=== PATIENT | male | born 1970 | race Caucasian/White ===

== ENCOUNTER 2024-02-13 13:40 | Emergency (ER) | payer OTHER ==
[~2024-02-13] VITALS: Ht 182.8 cm
[2024-02-13] MEDS ORDERED: TRAMADOL HCL50 MG PO (14:13)
[2024-02-13] MEDS ORDERED: EFFEXOR XR75 M1 PO (14:13)
[2024-02-13] MEDS ORDERED: FOLIC ACID0.8 M1 PO (14:14)
[2024-02-13] MEDS ORDERED: GLIPIZIDE5 M1 PO (14:14)
[2024-02-13] MEDS ORDERED: TRULICITY0.75 MG/0. SC (14:15)
[2024-02-13] MEDS ORDERED: Bacitracin Zinc 14 GM TUBE T ONE (15:30)
== END 2024-02-13 15:32 | disposition home or self-care (01) ==
LOC: ED 13:40
DX: S62.502A Fracture of unspecified phalanx of left thumb, initial encounter for closed fracture (principal); E11.9 Type 2 diabetes mellitus without complications; I10 Essential (primary) hypertension; E78.5 Hyperlipidemia, unspecified; J44.9 Chronic obstructive pulmonary disease, unspecified; F41.9 Anxiety disorder, unspecified; F32.A Depression, unspecified; Z88.6 Allergy status to analgesic agent; Z88.8 Allergy status to other drugs, medicaments and biological substances; Z98.890 Other specified postprocedural states; F17.200 Nicotine dependence, unspecified, uncomplicated; Y04.0XXA Assault by unarmed brawl or fight, initial encounter; Y93.89 Activity, other specified; Y92.89 Other specified places as the place of occurrence of the external cause; Y99.8 Other external cause status

== ENCOUNTER 2024-04-01 14:26 | Emergency (ER) | payer OTHER ==
[~2024-04-01] VITALS: Ht 182.8 cm; Wt 96.6 kg
[~2024-04-01 14:26] MED LIST: EFFEXOR XR75 M1 PO; FOLIC ACID0.8 M1 PO; GLIPIZIDE5 M1 PO; TRAMADOL HCL50 MG PO; TRULICITY0.75 MG/0. SC
[2024-04-01] MEDS ORDERED: KLONOPIN1 M1 PO (14:54)
[2024-04-01] MEDS ORDERED: OXYCODONE HCL5 MG PO (15:18)
[2024-04-01] MEDS ORDERED: BENZTROPINE ME0.5 MG PO (15:18)
[2024-04-01] MEDS ORDERED: VENT7GM INH (15:19)
[2024-04-01] MEDS ORDERED: NATURE'S BLEND F1 MG PO (15:19)
[2024-04-01] MEDS ORDERED: LAMOTRIGINE25 M1 PO (15:19)
[2024-04-01] MEDS ORDERED: LISINOPRIL2.5 MG PO (15:19)
[2024-04-01] MEDS ORDERED: OMEPRAZOLE40 MG PO (15:19)
[2024-04-01] MEDS ORDERED: CYCLOBENZAPRINE10 MG PO (15:20)
[2024-04-01] MEDS ORDERED: MELOXICAM15 MG PO (15:20)
[2024-04-01] MEDS ORDERED: clonAZEPAM 0.5 MG TAB PO ONE (16:45)
[2024-04-01 16:59] LABS: BILIRUBIN Negative (Negative); BLOOD Negative (Negative); CLARITY Clear (Clear); COLOR Yellow (Yellow); GLUCOSE 1+ (Negative); KETONE Negative (Negative); LEUKO ESTERASE Trace (Negative); NITRITE Negative (Negative); SPECIFIC GRAVITY <= 1.005 (1.001-1.030); UROBILINOGEN 0.2 E.U./dl (0.0-1.0)
[2024-04-01 16:59] LABS: HEMATOCRIT 43.4 % (42.0-52.0); MEAN CELL VOLUME 87.9 fl (80.0-94.0); MEAN CORPUSCULAR HGB 27.9 pg (27.0-31.0); MEAN CORPUSCULAR HGB CONC 31.8 g/dl (33.0-37.0); MEAN PLATELET VOLUME 12.6 fl (9.6-12.3); PLATELET COUNT AUTOMATED 124 10*3/uL (130-400); RED BLOOD COUNT 4.94 10*6/uL (4.50-5.90); WHITE BLOOD COUNT 7.8 10*3/uL (4.8-10.8)
[2024-04-01 17:00] LABS: MANUAL DIFF REFLEX YES
[2024-04-01 17:20] LABS: ALKALINE PHOSPHATASE 97 U/L (46-116); BUN 8 mg/dl (9-23); CHLORIDE 111 mmol/L (98-107); POTASSIUM 3.4 mmol/L (3.4-5.1); SGPT/ALT 65 U/L (5-49)
[2024-04-01 17:22] LABS: BACTERIA TRACE; WBC 0-2 wbc/hpf (0-5)
[2024-04-01 17:29] LABS: PLATELET SUFFICIENCY NORMAL (NORMAL); TOTAL CELLS COUNTED 100 #CELLS
[2024-04-01 17:30] LABS: BURR CELLS FEW
[2024-04-01] MEDS ORDERED: CEPHALEXIN 500 MG CAP PO ONE (18:15)
[2024-04-01] MEDS ORDERED: CEPHALEXIN500 M1 PO (18:44)
== END 2024-04-01 18:52 | disposition home or self-care (01) ==
LOC: ED 14:26
PROVIDERS: Emergency Medicine
DX: R07.89 Other chest pain (principal); N39.0 Urinary tract infection, site not specified; R06.89 Other abnormalities of breathing; Z88.6 Allergy status to analgesic agent; Z88.8 Allergy status to other drugs, medicaments and biological substances; Z79.899 Other long term (current) drug therapy